=== PATIENT | female | born 1955 | race Caucasian/White ===

== ENCOUNTER → 2019-10-04 07:31 | Outpatient (REF) | payer OTHER, SELFPAY | LOC: ANHLAB 07:31 | PROVIDERS: Visit Provider Nurse Practitioner | DX: C44.01 Basal cell carcinoma of skin of lip (principal); C44.519 Basal cell carcinoma of skin of other part of trunk; C44.622 Squamous cell carcinoma of skin of right upper limb, including shoulder | CPT/HCPCS: 88305; 88331 ==

== ENCOUNTER 2022-09-23 14:15 | Outpatient (NON) | payer OTHER, SELFPAY | END 2022-09-23 14:16 | disposition home or self-care (01) | LOC: ANHLAB 14:15 | PROVIDERS: Visit Provider Nurse Practitioner | DX: C44.329 Squamous cell carcinoma of skin of other parts of face (principal) | CPT/HCPCS: 88305; 88331 ==